=== PATIENT | female | born 1995 | race Caucasian/White ===

== ENCOUNTER 2018-12-02 01:27 | Day surgery (SDC) | payer OTHER ==
[~2018-12-02] VITALS: Ht 165.1 cm; Wt 63.0 kg
[~2018-12-02 01:27] MED LIST: MULT-34 PO; NORG1TAB59 PO; OMEP-218 PO; TRAZ50TA52 PO
[2018-12-02] MEDS ORDERED: PROPOFOL EMUL(*) 10MG/ML 20 ML 20 ML ONE (08:53)
[2018-12-02] MEDS ORDERED: LIDOCAINE/SOD BICARB 8.4% SYR ID ONE (12:40)
[2018-12-02] MEDS ORDERED: NORMOSOL R SOLN(*) 1000 ML BAG 1,000 ML IV PRN (12:40)
[2018-12-02 13:13] VITALS: BP 102/71
[2018-12-02 14:01] VITALS: BP 117/75
[2018-12-02 14:15] VITALS: BP 116/72
[2018-12-02 14:30] VITALS: BP 113/75
[2018-12-02 14:36] VITALS: BP 112/76
[2018-12-02 14:41] VITALS: BP 120/81
== END 2018-12-02 15:15 | disposition home or self-care (01) ==
LOC: OR 01:27
PROVIDERS: ATTEND Internal Medicine Gastroenterology
DX: K29.70 Gastritis, unspecified, without bleeding (principal); K44.9 Diaphragmatic hernia without obstruction or gangrene; K20.9 Esophagitis, unspecified
CPT/HCPCS: 43239; 81025; 88305; 88313; 88342; J2704